=== PATIENT | male | born 1980 | race Two or more races ===

== ENCOUNTER 2024-12-26 18:13 | Emergency (ER) | payer MEDICAID, OTHER ==
[~2024-12-26] VITALS: Ht 180.3 cm; Wt 131.5 kg
[2024-12-26] MEDS ORDERED: ACETAMINOPHEN ES 500 MG TABLET ONE (19:04)
[2024-12-26] MEDS: ACETAMINOPHEN ES 500 MG TABLET PO ONE (19:06)
[2024-12-26] MEDS ORDERED: ACET-2030 PO (19:46)
[2024-12-26] MEDS ORDERED: IBUP-1957 PO (19:46)
[2024-12-26 19:53] VITALS: BP 110/71; TEMP 97.6; O2SAT 96
== END 2024-12-26 19:54 | disposition home or self-care (01) ==
LOC: ER 18:13
DX: B34.9 Viral infection, unspecified (principal); R05.9 Cough, unspecified; R50.9 Fever, unspecified; Z20.822 Contact with and (suspected) exposure to COVID-19
CPT/HCPCS: 71045-TC